=== PATIENT | male | born 1995 | race American Indian/Alaskan Native ===

== ENCOUNTER 2017-02-01 22:29 | Emergency (ER) | payer OTHER ==
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
[2017-02-02] MEDS ORDERED: TORADOL IM ONE (04:18)
[2017-02-02] MEDS ORDERED: MOTRIN ONE (04:31)
[2017-02-02] MEDS ORDERED: MOTRIN PO ONE (04:34)
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
[2017-02-02 06:47] VITALS: BP 119/79
== END 2017-02-02 06:47 | disposition home or self-care (01) ==
LOC: ED 22:29
DX: S09.8XXA Other specified injuries of head, initial encounter (principal); S16.1XXA Strain of muscle, fascia and tendon at neck level, initial encounter; G44.311 Acute post-traumatic headache, intractable; V89.2XXA Person injured in unspecified motor-vehicle accident, traffic, initial encounter; Y93.89 Activity, other specified; Y92.89 Other specified places as the place of occurrence of the external cause; Y99.8 Other external cause status
CPT/HCPCS: 70450; 70490; J1885